=== PATIENT | male | born 1980 | race Caucasian/White ===

== ENCOUNTER 2020-10-04 22:25 | Emergency (ER) | payer MEDICAID ==
[~2020-10-04] VITALS: Ht 157.5 cm; Wt 65.8 kg
[2020-10-04 22:25] VITALS: BP_SYST 138
[2020-10-04] MEDS ORDERED: NACL 0.9% 1,000 ML IV ONE (23:15)
[2020-10-04] MEDS ORDERED: KETOROLAC TROMETHAMINE 30 MG VIAL IVP ONE (23:15)
[2020-10-04 23:29] LABS: BASOPHILS % (AUTO) 0.3 % (0.0-2.0); EOSINOPHILS # (AUTO) 0.1 K/uL (0.0-0.4); EOSINOPHILS % (AUTO) 1.3 % (0.0-4.0); HEMATOCRIT 43.9 % (36-54); LYMPHOCYTES # (AUTO) 3.1 K/uL (1.0-5.5); LYMPHOCYTES % (AUTO) 43.3 % (20.5-51.5); MEAN CORPUSCULAR HEMOGLOBIN 29 pg (27-31); MEAN CORPUSCULAR HGB CONC 34 % (32-36); MEAN CORPUSCULAR VOLUME 84 fL (79.0-98.0); MONOCYTES # (AUTO) 0.4 K/uL (0.0-1.0); MONOCYTES % (AUTO) 6.2 % (1.7-9.3); NEUTROPHILS # (AUTO) 3.5 K/uL (1.8-7.7); NEUTROPHILS % (AUTO) 48.9 % (40.0-70.0); PLATELET COUNT (AUTO) 275 K/uL (130-430); RED BLOOD CELL COUNT(AUTO) 5.22 MIL/uL (4.2-6.2); RED CELL DISTRIBUTION WIDTH 12.9 % (9.0-15.0); WHITE BLOOD COUNT (AUTO) 7.2 K/uL (4.8-10.8)
[2020-10-04 23:43] LABS: CALCIUM 8.9 mg/dL (8.4-11.0); CREATININE 1.08 mg/dL (0.55-1.30); POTASSIUM 3.8 mmol/L (3.5-5.1)
[2020-10-04 23:49] LABS: ALBUMIN 4.3 g/dL (3.4-4.8); TOTAL BILIRUBIN 0.6 mg/dL (0.0-1.0)
[2020-10-05 00:30] LABS: BILIRUBIN,URINE 1+ (NEGATIVE); BLOOD, URINE 3+ (NEGATIVE); COLOR,URINE YELLOW (YELLOW); GLUCOSE,URINE NEGATIVE (NEGATIVE); KETONES,URINE NEGATIVE (NEGATIVE); LEUKOCYTE ESTERASE ,URINE NEGATIVE (NEGATIVE); NITRITE, URINE NEGATIVE (NEGATIVE); PH,URINE 6.5 (5.0-8.0); PROTEIN URINE 2+ (NEGATIVE); UROBILINOGEN,URINE 0.2 (0.2-1.0)
[2020-10-05 00:37] LABS: CLARITY/URINE HAZY (CLEAR)
[2020-10-05 00:49] LABS: BACTERIA,URINE FEW /HPF (None Seen); RBC,URINE 50-80 /HPF (0-3); WBC,URINE 0-3 /HPF (0-3)
[2020-10-05 00:50] LABS: YEAST,URINE Few /HPF (None Seen)
[2020-10-05] MEDS ORDERED: CEPH250C PO (01:33)
[2020-10-05] MEDS ORDERED: ACET1TAB23 PO (01:33)
[2020-10-05] MEDS ORDERED: PROM25TA15 PO (01:33)
[2020-10-05 01:45] VITALS: BP_SYST 134
== END 2020-10-05 01:45 | disposition home or self-care (01) ==
LOC: EDSEX 22:25 → SED 22:25
DX: N23 Unspecified renal colic (principal); N39.0 Urinary tract infection, site not specified; Z79.899 Other long term (current) drug therapy
CPT/HCPCS: 36415; 80053; 81000; 85025; 96361; 96374; 99283; J7030

== ENCOUNTER 2021-06-03 08:20 | Emergency (ER) | payer MEDICAID, SELFPAY ==
[~2021-06-03] VITALS: Ht 154.9 cm; Wt 68.0 kg
[2021-06-03 08:20] VITALS: BP_SYST 117
[~2021-06-03 08:20] MED LIST: ACET1TAB23 PO; CEPH250C PO; PROM25TA15 PO
--- NOTE | 2021-06-03 08:20 | NUR ---
PT IN TRIAGE OUTSIDE TENT AND TRIAGED. WILL ASSUME CARE.
--- NOTE | 2021-06-03 08:40 | NUR ---
PT STATES HE HAS HAD NECK PAIN AND HEADACHE, PT STATES HE IS WORRIED HE MIGHT HAVE MENINGITIS. PT ABLE TO SHAKE HEAD YES/NO, NO PROBLEM
--- NOTE | 2021-06-03 09:15 | NUR ---
NO CHANGES, SITTING OUTSIDE WITH FAMILY.
--- NOTE | 2021-06-03 10:09 | NUR ---
Patient given written and verbal discharge instructions and verbalizes understanding. ER MD discussed with patient the results and treatment provided. Patient in stable condition. ID arm band removed Rx of NONE given. Patient educated on pain management and to follow up with PMD. Pain Scale 0/10. Opportunity for questions provided and answered. Medication side effect fact sheet provided.
== END 2021-06-03 10:09 | disposition home or self-care (01) ==
LOC: SED 08:20
DX: J02.8 Acute pharyngitis due to other specified organisms (principal); B97.89 Other viral agents as the cause of diseases classified elsewhere; M79.18 Myalgia, other site; Z20.822 Contact with and (suspected) exposure to COVID-19; Z79.899 Other long term (current) drug therapy
CPT/HCPCS: 99281